=== PATIENT | male | born 1940 | race Two or more races ===

== ENCOUNTER 2022-03-04 16:13 | Emergency (ER) | payer OTHER ==
[~2022-03-04] VITALS: Ht 170.2 cm; Wt 72.6 kg
[2022-03-04] MEDS ORDERED: LOSARTAN POTASS25 MG PO (17:28)
[2022-03-04] MEDS ORDERED: TOPROL XL25 M1 (17:28)
[2022-03-04] MEDS ORDERED: TAMS0.4C PO (17:29)
[2022-03-04] MEDS ORDERED: SIMVASTATIN5 MG (17:29)
[2022-03-04] MEDS ORDERED: PANTOPRAZOLE SO20 MG PO (17:29)
[2022-03-04] MEDS ORDERED: EXELON1 EAC1 TD (17:30)
[2022-03-04] MEDS ORDERED: VITAMIN D325 MCG PO (17:30)
== END 2022-03-04 21:34 | disposition home or self-care (01) ==
LOC: ER 16:13
DX: M54.59 Other low back pain (principal); S39.82XA Other specified injuries of lower back, initial encounter; X58.XXXA Exposure to other specified factors, initial encounter; Y93.89 Activity, other specified; Y92.89 Other specified places as the place of occurrence of the external cause; Z91.018 Allergy to other foods